=== PATIENT | male | born 1955 | race African-American/Black ===

== ENCOUNTER 2019-05-12 10:35 | Emergency (ER) | payer MEDICAID ==
[~2019-05-12] VITALS: Ht 167.6 cm; Wt 72.0 kg
[2019-05-12] MEDS ORDERED: KETOROLAC 30MG/ML VIAL IM ONE (11:00)
[2019-05-12] MEDS: KETOROLAC 15MG/ML VIAL IM NR ×2 (11:32→12:08)
[2019-05-12 13:33] LABS: CLARITY URINE CLEAR (CLEAR); COLOR URINE YELLOW (YELLOW); KETONES URINE TRACE (NEGATIVE); LEUKOCYTE ESTERASE URINE NEGATIVE (NEGATIVE); NITRITE URINE NEGATIVE (NEGATIVE); OCCULT BLOOD URINE NEGATIVE (NEGATIVE); PROTEIN URINE TRACE (NEGATIVE)
[2019-05-12 14:17] VITALS: BP 138/78
== END 2019-05-12 14:20 | disposition home or self-care (01) ==
LOC: ER 10:35
DX: M54.5 Low back pain (principal); F20.9 Schizophrenia, unspecified; E78.00 Pure hypercholesterolemia, unspecified; Z59.0 Homelessness
CPT/HCPCS: 81003; 96372; 99283; J1885